=== PATIENT | female | born 1960 | race Caucasian/White ===

== ENCOUNTER 2022-09-26 14:50 | Emergency (ER) | payer MEDICARE, MEDICAID ==
[2022-09-26] MEDS ORDERED: Ketorolac 30 MG/ML SDV IM ONE (15:45)
== END 2022-09-26 16:08 | disposition home or self-care (01) ==
LOC: DL.ED 14:50
DX: M25.551 Pain in right hip (principal); Z88.5 Allergy status to narcotic agent; Z88.0 Allergy status to penicillin; W01.0XXA Fall on same level from slipping, tripping and stumbling without subsequent striking against object, initial encounter
CPT/HCPCS: 73502; 96372; 99283; J1885